=== PATIENT | female | born 1950 | race Caucasian/White ===

== ENCOUNTER 2023-07-14 09:15 | Outpatient (RCR) | payer OTHER, SELFPAY | END 2023-07-14 23:59 | disposition home or self-care (01) | LOC: PURB 09:15 | PROVIDERS: ATTENDING PHYSICIAN Internal Medicine; FAMILY PHYSICIAN Internal Medicine | DX: J98.4 Other disorders of lung (principal) | CPT/HCPCS: G0237 ==

== ENCOUNTER 2023-08-16 08:30 | Outpatient (RCR) | payer OTHER, SELFPAY | END 2023-08-16 23:59 | disposition home or self-care (01) | LOC: PURB 08:30 | PROVIDERS: ATTENDING PHYSICIAN Internal Medicine; FAMILY PHYSICIAN Internal Medicine | DX: J98.4 Other disorders of lung (principal) | CPT/HCPCS: G0239 ==

== ENCOUNTER → 2023-09-07 08:17 | Outpatient (REF) | payer OTHER, SELFPAY | LOC: RCS 08:17 | PROVIDERS: ATTENDING PHYSICIAN Internal Medicine Cardiovascular Disease; FAMILY PHYSICIAN Internal Medicine | DX: I25.10 Atherosclerotic heart disease of native coronary artery without angina pectoris (principal); Z95.2 Presence of prosthetic heart valve | CPT/HCPCS: 93306; 93356 ==

== ENCOUNTER 2023-09-15 08:30 | Outpatient (RCR) | payer OTHER, SELFPAY | END 2023-09-15 23:59 | disposition home or self-care (01) | LOC: PURB 08:30 | PROVIDERS: ATTENDING PHYSICIAN Internal Medicine; FAMILY PHYSICIAN Internal Medicine | DX: J98.4 Other disorders of lung (principal); G47.33 Obstructive sleep apnea (adult) (pediatric) | CPT/HCPCS: G0239 ==

== ENCOUNTER 2023-10-04 08:30 | Outpatient (RCR) | payer OTHER, SELFPAY | END 2023-10-05 09:41 | disposition home or self-care (01) | LOC: PURB 08:30 | PROVIDERS: ATTENDING PHYSICIAN Internal Medicine; FAMILY PHYSICIAN Internal Medicine | DX: J98.4 Other disorders of lung (principal) | CPT/HCPCS: G0239 ==

== ENCOUNTER → 2023-11-01 12:21 | Outpatient (REF) | payer OTHER, SELFPAY | LOC: PET 12:21 | PROVIDERS: ATTENDING PHYSICIAN Internal Medicine Cardiovascular Disease | DX: R07.89 Other chest pain (principal); R06.09 Other forms of dyspnea; Z95.1 Presence of aortocoronary bypass graft | CPT/HCPCS: 78431; A9555; J2785 ==

== ENCOUNTER → 2024-05-02 13:59 | Outpatient (REF) | payer OTHER, SELFPAY | LOC: HWRAD 13:59 | PROVIDERS: ATTENDING PHYSICIAN Physician Assistant; FAMILY PHYSICIAN Internal Medicine | DX: I65.29 Occlusion and stenosis of unspecified carotid artery (principal) | CPT/HCPCS: 93880 ==

== ENCOUNTER 2024-06-23 10:44 | Emergency (ER) | payer OTHER, SELFPAY ==
[2024-06-23] VITALS (7 sets, daily range): BP systolic 132–183; BP diastolic 53–83; BMI 31.5
--- NOTE | 2024-06-23 11:41 | EDRN ---
Darian BROCK in room w/pt.
--- NOTE | 2024-06-23 11:41 | EDRN ---
Pt states she had lower jaw pain, R upper back pain, R shoulder pain, and still has R upper arm.
[2024-06-23 11:44] LABS: % Basophils 0.5 % (0-2); % Eosinophils 2.3 % (0-6); % Immature Granulocytes 0.3 % (0-0.5); % Lymphocytes 21.7 % (20.5-51.1); % Monocytes 7.6 % (1.7-9.3); % Neutrophils 67.6 % (42.2-75.2); Absolute Eosinophils 0.1 10^3/uL (0-0.7); Absolute Lymphocytes 1.3 10^3/uL (1.2-3.4); Absolute Monocytes 0.5 10^3/uL (0.1-0.6); Absolute Neutrophils 4.1 10^3/uL (1.4-6.5); Hematocrit 41.1 % (37.0-47.0); Hemoglobin 13.4 g/dL (12.0-16.0); Mean Corp Hgb Conc. 32.6 g/dL (33.0-37.0); Mean Corpuscular Volume 85.8 fL (81.0-99.0); Mean Platelet Volume 10.7 fL (7.4-10.4); Nucleated Red Blood Cells % 0 %; Platelet Count 213 10^3/uL (130-400); Red Blood Cell Count 4.79 10^6/uL (4.20-5.40); Red Cell Dist. Width 13.9 % (11.5-14.5)
--- NOTE | 2024-06-23 11:45 | ED.GENMED ---
History of Present Illness
General
Chief Complaint: Cardiac Symptoms
Source: patient
Exam Limitations: none
Time Seen by Provider: 06/23/24 11:23
History of Present Illness
History of Present Illness:
74yoF with a history of coronary artery disease s/p CABGx2 in 2021, aortic stenosis s/p porcine aortic valve replacement, CHF, hypertension, hyperlipidemia, ulcerative colitis, and inclusion body myositis presenting for evaluation of jaw pain.
Patient initially started with pain in her right scapular region about 2 to 3 days ago while in bed. She thought her symptoms were muscular and has been applying Voltaren gel. She was getting out of bed this morning around 7:30 AM when she started
to experience a pain throughout her jaw bilaterally. She also reports feeling shortness of breath and has been having intermittent episodes of feeling 'internally warm.' She has no pain currently but states that she continues to feel weird. Of
note, patient reports some bilateral leg swelling and has gained about 4 to 5 pounds over the past few weeks. She denies any diaphoresis, nausea, vomiting, dizziness, syncope, paresthesias, fevers, cough. She follows with Dr. Muse.
Past History
Past History
ED Past Medical History: CHF, HTN, Hypercholesterolemia, NIDDM and Other (Polymyositis)
ED Past Surgical History: , Orthopedic and Other (Laparotomy appendix intact per the patient); Negative Appendectomy
Social History
Tobacco: Non-smoker
Alcohol: None
Drug: None
Personal:
Living: with family
Employment: Employed
Family History
Family History: Other (Noncontributory)
Phy Exam
General Physical Exam
General Presentation: well appearing and no apparent distress
General age: appears stated age
General Skin: warm and dry
General Habitus: normal
General Mental: alert
ENT Exam
ENT Exam: normocephalic
Cardiovascular Exam
Cardiovascular Exam: regular rate/rhythm, systolic murmur and other (Trace pitting edema in bilateral lower extremities)
Pulmonary Exam
Pulmonary Exam: lungs clear, no respiratory distress, no rales, no rhonchi and no wheezing
Neurological Exam
Neurological Exam: alert
Gauri Coma Scale
Eye Opening: Spontaneous
Verbal Response: Oriented
Motor Response: Obeys Commands
GCS Total Score: 15
Skin Exam
Skin Exam: normal color and warm/dry
Psychiatric Exam
Psychiatric Exam: normal mood/affect
Course
Orders/Labs/Results
Orders:
Orders
06/23/24 10:45
ECG [Electrocardiogram (*1)] Urgent
Reason for Study: Chest Pain
EKG- Treatment ONCE
06/23/24 11:09
Cardiac Monitoring- Treatment ONCE
06/23/24 11:20
D-Dimer Urgent
06/23/24 11:23
Complete Blood Count/With Diff Urgent
06/23/24 11:44
Cardiac Monitoring- Treatment ONCE
CR Chest - 2 Views Urgent
Comment:
Reason For Exam: R upper back pain
06/23/24 11:46
Comprehensive Metabolic Panel Urgent
NT-proBNP Urgent
Troponin I Urgent
06/23/24 12:49
CT Chest PE Study Urgent
Comment:
Reason For Exam: R upper back pain, elevated D-dimer
06/23/24 12:50
EKG- Treatment ONCE
06/23/24 14:45
Electrocardiogram (*1) Urgent
Reason for Study: Shortness of Breath
06/23/24 14:52
Troponin I Urgent
Abnormal Lab Results
06/23/24 06/23/24 06/23/24
11:20 11:23 11:46
MCHC 32.6 L g/dL
(33.0-37.0)
MPV 10.7 H fL
(7.4-10.4)
D-Dimer 0.72 H ug/mlFEU
(0.00-0.50)
BUN 21 H mg/dl
(7-17)
Glucose 169 H mg/dl
(70-99)
ALT 54 H U/L
(0-35)
06/23/24 11:23
06/23/24 11:46
Vital Signs
Initial and Last Documented VS:
Initial Vital Signs
Temp Pulse Resp BP Pulse Ox
98.1 F 79 16 177/83 100
06/23/24 10:46 06/23/24 10:46 06/23/24 10:46 06/23/24 10:46 06/23/24 10:46
Last Documented Vital Signs
Temp Pulse Resp BP Pulse Ox
98.1 F 73 12 183/76 93
06/23/24 10:46 06/23/24 15:45 06/23/24 15:45 06/23/24 15:00 06/23/24 15:45
MDM/Problems Addressed
Differential Diagnosis Includes:
74yoF here with R upper back pain x 3 days. Started with jaw pain and SOB earlier today. Symptoms currently improved. Hx of CAD s/p CABG. she is hypertensive with otherwise normal vital signs. She is well-appearing in no acute distress. Exam
reassuring. Differential diagnosis includes but is not limited to: ACS, arrhythmia, PE
Initial ED plan: Check cardiac labs, D-dimer, EKG, and chest x-ray.
*EKG
Interpreted by ED Provider?: Yes
EKG Intrepretation Date: 06/23/24
Heart Rate: 72
Rate: normal
Rhythm: sinus
[place]: normal axis
Interval: normal interval
QRS Pattern: normal QRS
Ischemia: no ischemia
*Critical Care Note
Total Time (30-74mins, 75-104mins- exclusive of procedures): Not Applicable
Update Note
Update Note:
EKG shows NSR without ischemic changes and troponin WNL. BNP 441 which is lower than previous value in 2020. D-dimer elevated and CTA chest subsequently ordered. CT imaging negative for pulmonary embolism. Imaging does show interval increase in
size of a large 7.5 cm enhancing mass in the left lobe of the thyroid which is moderately displacing the trachea to the right. Discussed this finding with patient. She reports a known history of a large thyroid nodule for the past 20 years. She
follows with endocrinology for this and receives biopsies every 5 years and is scheduled to receive a biopsy in the upcoming months. Imaging also shows small airspace consolidations in the basilar segments of the lower lobes which may be
atelectasis or mild pneumonia. Patient has no clinical symptoms to suggest pneumonia and white count is normal. Delta troponin/EKG unchanged. On reassessment, her jaw symptoms and dyspnea have completely resolved. No indication for
hospitalization at this time. Will have patient follow-up closely with her partition assembler. She is also advised to follow-up with her director funeral regarding her enlarging thyroid mass. ED return precautions discussed. She expressed understanding
and is agreement with plan. She was discharged in stable condition.
ED Attending Note
-
Portions of this chart may have been created with voice recognition software.� Occasional wrong word or��sound alike� substitutions may have occurred due to the inherent limitations of voice recognition software.
Discharge Plan
Departure
Patient Disposition: Home (Routine Discharge)
Date of Disposition: 06/23/24
Time of Disposition: 15:47
Patient with high blood pressure during this ER visit?: Yes
Discharge Problem:
Jaw pain
Instructions: Chest Pain DCA Follow Up
Prescriptions:
No Action
aspirin 81 MG tablet,delayed release (DR/EC)
81 mg PO HS
coenzyme Q10 100 MG capsule
200 mg PO DAILY
biotin 5 MG capsule
5,000 mg PO DAILY
famotidine 20 MG tablet
20 mg PO BID Qty: 60 0RF
levothyroxine 75 MCG tablet
75 mcg PO DAILY
pravastatin 10 MG tablet
10 mg PO DAILY
infliximab [Remicade] 100 MG/10 ML recon soln
1,000 mg IV PER PROTOCOL
Patient Comments:
every 8 weeks
triamterene [Dyrenium] 50 MG capsule
50 mg PO DAILY
ketoconazole 1 APPLIC cream
1 applic S HS
ezetimibe 10 MG tablet
10 mg PO DAILY
chlorhexidine gluconate 15 ML mouthwash
15 ml PO BID
mecobalamin (vitamin B12) [B12 Active] 1,000 MCG tablet,chewable
1,000 mcg PO DAILY
acetaminophen 325 MG tablet
650 mg PO Q4HPRN PRN (Reason: pain) 0RF
labetalol 200 MG tablet
200 mg PO BID Qty: 0 0RF
Rx Instructions:
Decrease dose to 100mg twice daily until seen and re-evaluated by cardiology.
oxycodone 5 MG tablet
5 mg PO Q6HPRN PRN (Reason: pain) Qty: 20 0RF
Referrals:
Philip Bills DO [Family Provider] -
Activity Restrictions/Additional Instructions:
Please call your partition assembler on Tuesday to schedule a follow-up appointment. You should also discuss your enlarging thyroid mass with your director funeral.
Return to the ER immediately with any new or worsening symptoms.
Your CT results: Interval increase in size of a large 7.5 cm heterogeneous enhancing mass in the left lobe of the thyroid gland moderately displacing the trachea to the right.
Interventions
Interventions:
*Risk Screen - Suicide Last Done: 06/23/24 11:25
*General Assessment Last Done: 06/23/24 11:25
*Neglect/Abuse Screening Last Done: 06/23/24 11:25
ED- Fall Risk Assessment Last Done: 06/23/24 11:25
*ED COVID-19 Vaccine History Last Done: 06/23/24 11:25
*Nursing Disposition Last Done: 06/23/24 16:01
ED- Pulmonary Assessment Last Done: 06/23/24 11:25
ED- Cardiac Assessment Last Done: 06/23/24 11:25
Discharge Date and Time
Discharge Date/Time: 06/23/24 16:01
Print Language: MOHAWK
[2024-06-23 12:07] LABS: D-Dimer 0.72 ug/mlFEU (0.00-0.50)
[2024-06-23 12:11] LABS: ALT (SGPT) 54 U/L (0-35); AST (SGOT) 36 U/L (14-36); Albumin 4.4 g/dl (3.5-5.0); Alkaline Phosphatase 98 U/L (38-126); Blood Urea Nitrogen 21 mg/dl (7-17); Calcium 9.3 mg/dl (8.4-10.2); Carbon Dioxide 30 mmol/L (22-30); Chloride 98 mmol/L (98-107); Estimated Creatinine Clearance 63 ml/min; Glucose 169 mg/dl (70-99); Potassium 3.9 mmol/L (3.5-5.1); Sodium 136 mmol/L (135-145); Total Bilirubin 0.8 mg/dl (0.2-1.3); Total Protein 6.5 g/dl (6.3-8.2); eGFR > 60.00
[2024-06-23 12:22] LABS: NT-proBNP 441 pg/ml; Troponin I < 0.012 ng/ml
--- NOTE | 2024-06-23 14:10 | EDRN ---
Pt freq OOB to BR to void as she took her lasix this am.
--- NOTE | 2024-06-23 15:04 | EDRN ---
Repeat troponin drawn and sent
[2024-06-23 15:23] LABS: Troponin I < 0.012 ng/ml
== END 2024-06-23 16:01 | disposition home or self-care (01) ==
LOC: EMR 10:44
PROVIDERS: Physician Assistant; EMERGENCY PHYSICIAN Emergency Medicine; FAMILY PHYSICIAN Internal Medicine
DX: R68.84 Jaw pain (principal); R06.02 Shortness of breath; M54.6 Pain in thoracic spine; R07.9 Chest pain, unspecified; R60.0 Localized edema; I25.10 Atherosclerotic heart disease of native coronary artery without angina pectoris; I35.0 Nonrheumatic aortic (valve) stenosis; I11.0 Hypertensive heart disease with heart failure; I50.9 Heart failure, unspecified; E78.00 Pure hypercholesterolemia, unspecified; E11.9 Type 2 diabetes mellitus without complications; M33.20 Polymyositis, organ involvement unspecified; K51.90 Ulcerative colitis, unspecified, without complications; G72.41 Inclusion body myositis [IBM]; R01.1 Cardiac murmur, unspecified; E07.9 Disorder of thyroid, unspecified; Z95.3 Presence of xenogenic heart valve; Z95.1 Presence of aortocoronary bypass graft; Z79.82 Long term (current) use of aspirin; Z88.1 Allergy status to other antibiotic agents; Z88.2 Allergy status to sulfonamides; Z88.8 Allergy status to other drugs, medicaments and biological substances
CPT/HCPCS: 99284; 71046; 71275; 80053; 83880; 84484; 85025; 85379; 93005; Q9967

== ENCOUNTER → 2024-10-16 11:13 | Outpatient (REF) | payer OTHER, SELFPAY | LOC: HWRAD 11:13 | PROVIDERS: ATTENDING PHYSICIAN Nurse Practitioner Family | DX: R09.89 Other specified symptoms and signs involving the circulatory and respiratory systems (principal) | CPT/HCPCS: 71046 ==

== ENCOUNTER 2024-11-05 06:20 | Day surgery (SDC) | payer OTHER, SELFPAY ==
[2024-11-05 10:01] LABS: Glucose - Point of Care 106 mg/dl (70-99)
== END 2024-11-05 12:08 | disposition home or self-care (01) ==
LOC: GI 06:20
PROVIDERS: ATTENDING PHYSICIAN Internal Medicine Gastroenterology
DX: Z12.11 Encounter for screening for malignant neoplasm of colon (principal); K57.30 Diverticulosis of large intestine without perforation or abscess without bleeding; K64.0 First degree hemorrhoids; K62.89 Other specified diseases of anus and rectum; K51.00 Ulcerative (chronic) pancolitis without complications; R93.3 Abnormal findings on diagnostic imaging of other parts of digestive tract; K22.2 Esophageal obstruction; K44.9 Diaphragmatic hernia without obstruction or gangrene; K22.89 Other specified disease of esophagus; K31.89 Other diseases of stomach and duodenum
CPT/HCPCS: 45380; 43239; 88305; 82962; 88342

== ENCOUNTER → 2025-01-03 14:39 | Outpatient (REF) | payer OTHER, SELFPAY | LOC: HWRAD 14:39 | PROVIDERS: ATTENDING PHYSICIAN Internal Medicine Endocrinology, Diabetes & Metabolism; FAMILY PHYSICIAN Internal Medicine | DX: E04.2 Nontoxic multinodular goiter (principal) | CPT/HCPCS: 76536 ==

== ENCOUNTER → 2025-03-07 11:18 | Outpatient (REF) | payer OTHER, SELFPAY | LOC: HWRAD 11:18 | PROVIDERS: ATTENDING PHYSICIAN Obstetrics & Gynecology; FAMILY PHYSICIAN Internal Medicine | DX: R39.15 Urgency of urination (principal); N39.41 Urge incontinence | CPT/HCPCS: 76770 ==

== ENCOUNTER 2025-03-17 02:01 | Emergency (ER) | payer OTHER, SELFPAY ==
[2025-03-17 02:20] VITALS: BP 157/65
[2025-03-17 02:37] LABS: Hematocrit 42.3 % (37.0-47.0); Hemoglobin 13.7 g/dL (12.0-16.0); Mean Corp Hgb Conc. 32.4 g/dL (33.0-37.0); Mean Corpuscular Volume 83.3 fL (81.0-99.0); Nucleated Red Blood Cells % 0 %; Platelet Count 248 10^3/uL (130-400); Red Cell Dist. Width 14.8 % (11.5-14.5)
[2025-03-17 03:01] LABS: ALT (SGPT) 42 U/L (0-35); AST (SGOT) 28 U/L (14-36); Albumin 4.4 g/dl (3.5-5.0); Alkaline Phosphatase 72 U/L (38-126); Blood Urea Nitrogen 36 mg/dl (7-17); Calcium 10.1 mg/dl (8.4-10.2); Carbon Dioxide 27 mmol/L (22-30); Chloride 102 mmol/L (98-107); Glucose 226 mg/dl (70-99); Potassium 4.5 mmol/L (3.5-5.1); Sodium 136 mmol/L (135-145); Total Protein 6.6 g/dl (6.3-8.2); eGFR > 60.00
[2025-03-17 03:12] LABS: Troponin I < 0.012 ng/ml
[2025-03-17 03:16] VITALS: BP 164/67
[2025-03-17 03:27] VITALS: BMI 31.4
[2025-03-17 04:00] VITALS: BP 164/69
--- NOTE | 2025-03-17 04:53 | ED.GENMED ---
ED Provider Triage
<Lino Looney MD, Resident - Last Filed: 03/17/25 06:33>
-
Patient seen by provider in Triage?: Seen in Triage
History of Present Illness
<Lino Looney MD, Resident - Last Filed: 03/17/25 06:33>
General
Chief Complaint: Chest Pain
Source: patient
Exam Limitations: none
Time Seen by Provider: 03/17/25 04:33
History of Present Illness
History of Present Illness:
75 year old female who presents with chest pain, 2 episodes on nonbloody diarrhea, sweating which started yesterday night. She had dinner with her where she ate crab cakes, baked potato and had a glass of wine. She later woke up with chest
pain, moderate in intensity, non radiating, burning in character. No nasuea, vomiting, shortness of breath, cough, abdominal pain, dysuria, weight loss, dizziness, headache. No previous similar history. Has history of CAD with bypass surgery, HLD,
DM and HTN.
Past History
<Lino Looney MD, Resident - Last Filed: 03/17/25 06:33>
Past History
ED Past Medical History: CHF, HTN, Hypercholesterolemia, NIDDM and Other (Polymyositis)
ED Past Surgical History: , Orthopedic and Other (Laparotomy appendix intact per the patient); Negative Appendectomy
Social History
Tobacco: Non-smoker
Alcohol: None
Drug: None
Personal:
Living: with family
Employment: Employed
Family History
Family History: Other (Noncontributory)
Review of Systems
<Lino Looney MD, Resident - Last Filed: 03/17/25 06:33>
Review of Systems
All Other Systems: ROS reviewed and negative except as documented in HPI and ROS
Phy Exam
<Lino Looney MD, Resident - Last Filed: 03/17/25 06:33>
General Physical Exam
General Presentation: well appearing and no apparent distress
General Skin: warm and dry
General Habitus: normal
Pulmonary Exam
Pulmonary Exam: lungs clear and no respiratory distress
Gastrointestinal Exam
Gastrointestinal Exam: normal bowel sounds, non tender, soft and non distended
Neurological Exam
Neurological Exam: alert, oriented x3, no motor deficits, normal reflexs, no sensory deficits and speech normal
Musculoskeletal Exam
Musculoskeletal Exam: full ROM and no edema
Psychiatric Exam
Psychiatric Exam: normal mood/affect
Scores
<Lino Looney MD, Resident - Last Filed: 03/17/25 06:33>
Heart Score for Chest Pain Patients
STEMI patient?: No
History: Slightly or Non-Suspicious
ECG: Normal
Age: >/= 65 years
Risk Factors: >/= 3 Risk Factors or History of CAD
Troponin: </= Normal Limit
Heart Score for Chest Pain Patients: 4
Heart Score Risk: 20.3% MACE over next 6 weeks
<Jacinto Toledo, DO - Last Filed: 03/17/25 06:59>
Heart Score for Chest Pain Patients
Heart Score for Chest Pain Patients: 4
Heart Score Risk: 20.3% MACE over next 6 weeks
Course
<Lino Looney MD, Resident - Last Filed: 03/17/25 06:33>
Orders/Labs/Results
Orders:
Orders
03/17/25 02:17
Electrocardiogram (*1) Urgent
Reason for Study: Chest Pain
EKG- Treatment ONCE
03/17/25 02:29
Complete Blood Count/With Diff Urgent
Comprehensive Metabolic Panel Urgent
Troponin I Urgent
Abnormal Lab Results
03/17/25
02:29
WBC 11.2 H 10^3/uL
(4.8-10.8)
MCHC 32.4 L g/dL
(33.0-37.0)
RDW 14.8 H %
(11.5-14.5)
Absolute Neuts (auto) 7.5 H 10^3/uL
(1.4-6.5)
Absolute Monos (auto) 0.7 H 10^3/uL
(0.1-0.6)
BUN 36 H mg/dl
(7-17)
Glucose 226 H mg/dl
(70-99)
ALT 42 H U/L
(0-35)
03/17/25 02:29
03/17/25 02:29
Vital Signs
Initial and Last Documented VS:
Initial Vital Signs
Temp Pulse Resp BP Pulse Ox
97.9 F 88 16 157/65 94
03/17/25 02:20 03/17/25 02:20 03/17/25 02:20 03/17/25 02:20 03/17/25 02:20
Last Documented Vital Signs
Temp Pulse Resp BP Pulse Ox
97.9 F 70 16 169/76 93
03/17/25 02:20 03/17/25 06:00 03/17/25 06:00 03/17/25 06:00 03/17/25 06:00
<Jacinto Toledo, DO - Last Filed: 03/17/25 06:59>
Orders/Labs/Results
Orders:
Orders
03/17/25 02:17
Electrocardiogram (*1) Urgent
Reason for Study: Chest Pain
EKG- Treatment ONCE
03/17/25 02:29
Complete Blood Count/With Diff Urgent
Comprehensive Metabolic Panel Urgent
Troponin I Urgent
Abnormal Lab Results
03/17/25
02:29
WBC 11.2 H 10^3/uL
(4.8-10.8)
MCHC 32.4 L g/dL
(33.0-37.0)
RDW 14.8 H %
(11.5-14.5)
Absolute Neuts (auto) 7.5 H 10^3/uL
(1.4-6.5)
Absolute Monos (auto) 0.7 H 10^3/uL
(0.1-0.6)
BUN 36 H mg/dl
(7-17)
Glucose 226 H mg/dl
(70-99)
ALT 42 H U/L
(0-35)
03/17/25 02:29
03/17/25 02:29
Vital Signs
Initial and Last Documented VS:
Initial Vital Signs
Temp Pulse Resp BP Pulse Ox
97.9 F 88 16 157/65 94
03/17/25 02:20 03/17/25 02:20 03/17/25 02:20 03/17/25 02:20 03/17/25 02:20
Last Documented Vital Signs
Temp Pulse Resp BP Pulse Ox
97.9 F 70 16 169/76 93
03/17/25 02:20 03/17/25 06:00 03/17/25 06:00 03/17/25 06:00 03/17/25 06:00
<Lino Looney MD, Resident - Last Filed: 03/17/25 06:33>
MDM/Problems Addressed
Differential Diagnosis Includes:
GERD, gastritis, ACS, PUD
MDM/Problems Addressed:
75 y/o F with chest pain associated with 2 episodes of diarrhea, diaphoresis. Physical exam in unremarkable and patient is hemodynamiclly stable.
EKG is normal
Troponins are normal
CBC is unremarkable
CMP shows elevated glucose of 220 and ALT of 54
<Lino Looney MD, Resident - Last Filed: 03/17/25 06:33>
*Pulse Oximetry
SaO2: 97
Oxygen Mode of Delivery: Room air
Patient hypoxic: no
*Critical Care Note
Total Time (30-74mins, 75-104mins- exclusive of procedures): Not Applicable
ED Attending Note
<Lino Looney MD, Resident - Last Filed: 03/17/25 06:33>
-
Portions of this chart may have been created with voice recognition software.� Occasional wrong word or��sound alike� substitutions may have occurred due to the inherent limitations of voice recognition software.
<Jacinto Toledo, - Last Filed: 03/17/25 06:59>
ED Attending Note
Patient seen and examined by attending physician: Yes
I performed a history and physical exam of patient and discussed management with resident, I reviewed resident's note and agree with documented findings and plan of care.: Yes
ED Attending Note:
Note:
CHIEF COMPLAINT(S)
Chest discomfort.
HISTORY OF PRESENT ILLNESS
The patient is a 75-year-old female with a history of gastrointestinal reflux disease, presenting with chest discomfort that began last night around 8:30 PM. The patient describes the sensation more as a tightness rather than typical chest pain.
This sensation was noted for the first time at that hour. The episode lasted for about an hour and led to the patient going to bed earlier than usual. The patient mentions having dinner earlier that day and denies experiencing heartburn. The patient
is currently experiencing minimal symptoms, primarily when lying down.
The patient has an established history of cardiac issues, including a history of a stress test that was conducted by her tattoo and body artist, Dr. Almaguer. There is a follow-up appointment scheduled with the tattoo and body artist on Tuesday. The patient is on
aspirin therapy.
PAST MEDICAL HISTORY
Gastroesophageal Reflux Disease.
MEDICATIONS
Aspirin.
REVIEW OF SYSTEMS
- Cardiovascular: Chest tightness lasting approximately one hour, currently minimal symptoms. Denies leg swelling.
- Gastrointestinal: Rare heartburn, manages with a proton pump inhibitor as needed.
- Musculoskeletal: Bruising on the hand due to a recent impact with a refrigerator door.
PHYSICAL EXAM
General: Alert, no acute distress.
Skin: Warm, dry. Bruising observed on the hand.
Head: Normocephalic, atraumatic.
Neck: Supple, trachea midline.
Eye Ears, nose, mouth and throat: Oral mucosa moist.
Cardiovascular: Normal peripheral perfusion, No edema. Blood pressure was noted at 160/70 mmHg.
Respiratory: Respirations are non-labored.
Gastrointestinal: Abdomen nondistended
Back: Normal range of motion, Normal alignment.
Musculoskeletal: Normal ROM, normal strength. Bruising observed on hand.
Neurological: Alert and oriented to person, place, time, and situation, No focal neurological deficit observed.
Psychiatric: Cooperative, appropriate mood & affect.
PROBLEM LIST
- Acute: Chest discomfort
- Chronic: Gastroesophageal Reflux Disease
PLAN
The patient is advised to attend the forthcoming appointment with her tattoo and body artist on Tuesday. A follow-up has been scheduled should the current appointment be missed or rescheduled. The patient should return for further evaluation if the chest
symptoms recur, particularly if they are severe or concerning. The patients blood pressure and the potential need for the adjustment of antihypertensive medications were discussed, and she was advised to contact her primary care provider to address
this.
DIFFERENTIAL DIAGNOSIS
The Differential Diagnosis includes, in no particular order and is not limited to:
1. Gastroesophageal Reflux Disease (GERD)
2. Angina Pectoris
3. Musculoskeletal Pain
4. Esophageal Spasm
5. Pericarditis
6. Atypical Myocardial Infarction
7. Costochondritis
8. Anxiety or Panic Disorder
9. Aortic Dissection
10. Pulmonary Embolism
Disposition:
SUMMARY OF ENCOUNTER
A 75-year-old female presented with epigastric pain following a meal. She experienced some relief with at-home measures. Diagnostic evaluation included negative troponin levels at six hours and a normal EKG. There were no signs of acute distress
during the independent physical examination.
DISPOSITION
Patient to be discharged home.
ASSESSMENT
The patients epigastric pain appears to be non-cardiac in origin given the negative troponin and normal EKG, possibly related to gastrointestinal causes.
PLAN
The patient is advised to attend the follow-up appointment with the cardiology group on Tuesday for further evaluation. If symptoms worsen or change, return to the emergency department.
FOLLOW-UP INSTRUCTIONS
Please follow up with the cardiology group as scheduled on Tuesday.
MEDICAL DECISION MAKING
Chronic conditions affecting care include a history of Gastroesophageal Reflux Disease.
- Complexity of Data Reviewed: Differential diagnoses considered include Gastroesophageal Reflux Disease, Angina Pectoris, Esophageal Spasm, Atypical Myocardial Infarction, and other gastrointestinal causes.
Category 1:
Positive: troponin (negative result), EKG (normal result).
Category 3:
Patient care discussed with a resident, reviewed and agreed on the history and treatment plan.
Consideration of Admission/Observation: Escalation of care including admission/observation was considered given the complexity and risk of the patients presenting complaint, exam findings, and/or their underlying comorbidities. However, ultimately I
feel the patient is safe for outpatient management with close follow-up. Reasoning: Work-up reassuring, does not reveal any acute life/organ-threatening processes, patients symptoms well controlled upon reevaluation, reexamination is reassuring,
vitals are stable, patient agreeable with discharge, reliable for follow-up.
DIAGNOSIS
- Epigastric pain, possible Gastroesophageal Reflux Disease (ICD-10: R10.13)
- Non-cardiac chest pain (ICD-10: R07.89)
Discharge Plan
Departure
Patient Disposition: Home (Routine Discharge)
Date of Disposition: 03/17/25
Time of Disposition: 06:31
Patient with high blood pressure during this ER visit?: Yes
Condition: Good
Discharge Problem:
Chest pain, Essential (primary) hypertension
Instructions: Chest Pain DCA Follow Up, BLOOD PRESSURE
Prescriptions:
No Action
aspirin 81 MG tablet,delayed release (DR/EC)
81 mg PO HS
coenzyme Q10 100 MG capsule
200 mg PO DAILY
biotin 5 MG capsule
5,000 mg PO DAILY
famotidine 20 MG tablet
20 mg PO BID Qty: 60 0RF
levothyroxine 75 MCG tablet
75 mcg PO DAILY
pravastatin 10 MG tablet
10 mg PO DAILY
infliximab [Remicade] 100 MG/10 ML recon soln
1,000 mg IV PER PROTOCOL
Patient Comments:
every 8 weeks
triamterene [Dyrenium] 50 MG capsule
50 mg PO DAILY
ketoconazole 1 APPLIC cream
1 applic S HS
ezetimibe 10 MG tablet
10 mg PO DAILY
chlorhexidine gluconate 15 ML mouthwash
15 ml PO BID
mecobalamin (vitamin B12) [B12 Active] 1,000 MCG tablet,chewable
1,000 mcg PO DAILY
acetaminophen 325 MG tablet
650 mg PO Q4HPRN PRN (Reason: pain) 0RF
labetalol 200 MG tablet
200 mg PO BID Qty: 0 0RF
Rx Instructions:
Decrease dose to 100mg twice daily until seen and re-evaluated by cardiology.
oxycodone 5 MG tablet
5 mg PO Q6HPRN PRN (Reason: pain) Qty: 20 0RF
Referrals:
Ro Muse MD [Active, Cardiology] - Follow up in 2-3 days
Philip Bills DO [Family Provider, Internal Medicine] - Follow up in 5-7 days
Activity Restrictions/Additional Instructions:
Thank You for choosing [facility].
It was a pleasure meeting you and taking part in your care. We hope for your continued healing and wellness.
Please read discharge instructions in their entirety. However, they are for general education and may not describe your exact diagnosis at discharge. Information on your ER visit and medical conditions were discussed with you along with appropriate
follow up information...
If indicated, please take your medications as instructed and indicated on discharge paperwork.
Please schedule a follow up appointment as directed. Call to schedule an appointment
Please return to the emergency department with ANY change in, persisting, or worsening of symptoms. If any of your symptoms do not improve, or persist, or become more severe within 6-12 hours, please return to the emergency department for further
care.
Please return to the emergency department if you develop a headache, neck pain/stiffness, fever greater than 100.4F, chest pain, shortness of breath, persistent nausea, vomiting, slurred speech, difficulty walking, numbness/tingling, weakness, signs
of infection or any other symptoms that are worrisome to you.
If you have any questions or concerns please do not hesitate to call the Hospital at .
Interventions
Interventions:
*Risk Screen - Suicide Last Done: 03/17/25 02:13
*General Assessment Last Done: 03/17/25 02:13
*Neglect/Abuse Screening Last Done: 03/17/25 03:29
*ED- Fall Risk Assessment Last Done: 03/17/25 03:28
*ED COVID-19 Vaccine History Last Done: 03/17/25 03:28
*Nursing Disposition Last Done: 03/17/25 06:44
ED- Cardiac Assessment Last Done: 03/17/25 03:29
Discharge Date and Time
Discharge Date/Time: 03/17/25 06:46
Print Language: [id number]
[2025-03-17 05:00] VITALS: BP 171/64
[2025-03-17 06:00] VITALS: BP 169/76
== END 2025-03-17 06:46 | disposition home or self-care (01) ==
LOC: EMR 02:01
PROVIDERS: EMERGENCY PHYSICIAN Student in an Organized Health Care Education/Training Program; FAMILY PHYSICIAN Internal Medicine
DX: R07.89 Other chest pain (principal); I11.0 Hypertensive heart disease with heart failure; I50.9 Heart failure, unspecified; I25.10 Atherosclerotic heart disease of native coronary artery without angina pectoris; E78.00 Pure hypercholesterolemia, unspecified; E11.65 Type 2 diabetes mellitus with hyperglycemia; Z79.82 Long term (current) use of aspirin; Z90.49 Acquired absence of other specified parts of digestive tract
CPT/HCPCS: 99283; 80053; 84484; 85025; 93005

== ENCOUNTER → 2025-03-19 10:57 | Outpatient (REF) | payer OTHER, SELFPAY | LOC: HWRAD 10:57 | PROVIDERS: ATTENDING PHYSICIAN Internal Medicine | DX: S60.222A Contusion of left hand, initial encounter (principal); M25.512 Pain in left shoulder | CPT/HCPCS: 73030; 73130 ==

== ENCOUNTER → 2025-06-07 14:01 | Outpatient (REF) | payer OTHER, SELFPAY | LOC: HWWDC 14:01 | PROVIDERS: ATTENDING PHYSICIAN Internal Medicine | DX: Z12.31 Encounter for screening mammogram for malignant neoplasm of breast (principal) | CPT/HCPCS: 77063; 77067 ==